=== PATIENT | female | born 1960 | race Caucasian/White ===

== ENCOUNTER 2016-08-18 11:53 | Emergency (ER) | payer BC ==
[2016-08-18] MEDS ORDERED: NS 0.9% 1000 ML* 1,000 ML IV ONE (12:49)
[2016-08-18 13:11] LABS: Urine Bacteria Absent (Absent); Urine Bilirubin Negative (Negative); Urine Glucose Negative (Negative); Urine Nitrite Negative (Negative)
[2016-08-18 13:31] LABS: Add Diff/Slide Review? Slide Review Added; Comments Flag Yes; Hematocrit 34 % (35-47); Hemoglobin 11.2 g/dl (12.0-16.0); Mean Corpuscular HGB Conc 33 g/dl (31-36); Mean Corpuscular Hemoglobin 32 pg (27-31); Mean Corpuscular Volume 94 fL (80-97); Mean Platelet Volume 10 um3 (7.4-10.4); Red Blood Count 3.57 10^6/ul (4.0-5.4); Red Cell Distribution Width 13 % (10.5-15); White Blood Count 3.2 10^3/ul (3.5-10.8)
--- NOTE | 2016-08-18 13:56 | RAD ---
Indication: Decreased sensation of the left face, evaluate for stroke. CT of the brain was performed without IV contrast. Ventricular structures are midline. No midline shift is noted. The extraction spaces are unremarkable. There is no evidence of intracranial mass or hemorrhage. No other high or low density lesions are identified. Mastoid air cells and paranasal sinuses are otherwise unremarkable. IMPRESSION: No intracranial mass or hemorrhage is identified.
[2016-08-18 14:00] LABS: ALT 7 U/L (7-52); AST 16 U/L (13-39); Albumin 4.4 g/dL (3.2-5.2); Alkaline Phosphatase 57 U/L (34-104); Anion Gap 4 mmol/L (2-11); BUN/Creatinine Ratio 14.5 (8-20); Blood Urea Nitrogen 24 mg/dL (6-24); C Reactive Protein < 1.00 mg/L (< 5.00); CO2 Carbon Dioxide 30 mmol/L (22-32); Calcium 10.1 mg/dL (8.6-10.3); Chloride 105 mmol/L (101-111); EGFR African American 41.8 (>60); EGFR Non-African American 32.5 (>60); Globulin 2.7 g/dL (2-4); Glucose 90 mg/dL (70-100); Magnesium 2.2 mg/dL (1.9-2.7); Potassium 4.7 mmol/L (3.5-5.0); Sodium 139 mmol/L (133-145); Total Protein 7.1 g/dL (6.4-8.9)
[2016-08-18 14:27] LABS: TSH (Thyroid Stimulating Horm) 1.36 mcIU/mL (0.34-5.60)
[2016-08-18 14:33] VITALS: BP 107/66
--- NOTE | 2016-08-18 17:04 | ED ---
Jesus Xiao Billy, scribed for Otto Monahan MD on 08/18/16 at 1245 . Dizziness - HPI Summary HPI Summary: Patient is a 55 year-old female coming to [facility] for evaluation of dizziness starting two days ago. Patient describes near-syncopal sensation; denies any headspinning or roomspinning sensation. She has some staggering with ambulation. She also reports left-sided facial numbness associated with her dizziness. She reports constipation for several weeks. Denies any numbness/ weakness in the extremities. Denies any N/V/D, blood in the stools, chest pain, SOB, urinary changes, appetite changes, difficulty swallowing. Denies any known tick bites. Denies any recent change in medication. Denies any history of stroke. She had similar symptoms in 2010 which she attributes to side effects of lithium. - History Of Current Complaint Chief Complaint: EDDizziness Stated Complaint: DIZZY, NUMBNESS ON LEFT SIDE OF FACE Time Seen by Provider: 08/18/16 12:35 Hx Obtained From: Patient Onset/Duration: Still Present, Gradually Timing: Constant Severity Initially: Moderate Severity Currently: Moderate Character: Dizzy Aggravating Factor(s): Nothing Alleviating Factor(s): Nothing Associated Signs And Symptoms: Positive: Unsteady Gait. Negative: Nausea, Vomiting, Diarrhea, Chest Pain, SOB, Change In Medication, Blood In Stool - Allergies/Home Medications Allergies/Adverse Reactions: Allergies Allergy/AdvReac Type Severity Reaction Status Date / Time No Known Allergies Allergy Verified 08/18/16 12:21 Home Medications: Home Medications LORazepam TAB(*) [Ativan 0.5 MG TAB (*)] 0.5 mg PO BEDTIME PRN 08/18/16 [ History Confirmed 08/18/16] QUEtiapine TAB* [SEROquel TAB*] 200 mg PO BEDTIME 08/18/16 [History Confirmed ] lamoTRIgine TAB(*) [LaMICtal TAB(*)] 200 mg PO BID 08/18/16 [History Confirmed 08/18/16] PMH/Surg Hx/FS Hx/Imm Hx Endocrine/Hematology History: Denies: Hx Diabetes Cardiovascular History: Denies: Hx Hypertension, Hx Pacemaker/ICD History: Reports: Hx Renal Disease - DUE TO LITHIUM CARBONATE USE X24 YEARS Sensory History: Denies: Hx Hearing Aid Neurological History: Denies: Hx Seizures Psychiatric History: Reports: Hx Panic Disorder - ANXIETY ATTACKS, Hx Bipolar Disorder - Surgical History Surgery Procedure, Year, and Place: CYST REMOVED FROM LEFT FALLOPIAN TUBE, APPENDIX, BIOPSY RIGHT BREAST Infectious Disease History: No Infectious Disease History: Denies: Traveled Outside the [place] in Last 30 Days - Family History Family History: No FHx of stroke. - Social History Alcohol Use: None Substance Use Type: Reports: None Smoking Status (MU): Never Smoked Tobacco Review of Systems Negative: Chest Pain Negative: Shortness Of Breath Positive: Other - constipation. Negative: Vomiting, Diarrhea, Nausea Negative: dysuria, frequency, urgency Neurological: Other - dizziness Positive: Numbness - left-sided facial. Negative: Weakness All Other Systems Reviewed And Are Negative: Yes Physical Exam - Summary Physical Exam Summary: The patient is well-nourished in no acute distress and in no acute pain. The skin is warm and dry and skin color reflects adequate perfusion. HEENT: The head is normocephalic and atraumatic. The pupils are equal and reactive. No nystagmus. EOMI. The conjunctivae are clear and without drainage. Nares are patent and without drainage. Mouth reveals moist mucous membranes and the throat is without erythema and exudate. The external ears are intact. The ear canals are patent and without drainage. The tympanic membranes are intact. Neck is supple with full range of motion and non-tender. There are no carotid bruits. There is no neck vein distension. Respiratory: Chest is non-tender. Lungs are clear to auscultation and breath sounds are symmetrical and equal. Cardiovascular: Heart is regular rate and rhythm. Positive murmur. There is no peripheral edema and pulses are symmetrical and equal. Abdomen: The abdomen is soft and non-tender. There are normal bowel sounds heard in all four quadrants and there is no organomegaly palpated. Musculoskeletal: There is no back pain noted. No CVA tenderness. Extremities are non-tender with full range of motion. There is good capillary refill. There is no peripheral edema or calf tenderness elicited. Neurological: Patient is alert and oriented to person, place and time. The patient has symmetrical motor strength in all four extremities. Cranial nerves are grossly intact. No facial droop. No pronator drift. [id number] intact. [id number] intact. Decreased sensation on the left side of the face. Deep tendon reflexes are symmetrical and equal in all four extremities. Psychiatric: The patient has an appropriate affect and does not exhibit any anxiety or depression. Triage Information Reviewed: Yes Vital Signs On Initial Exam: Initial Vitals Temp Pulse Resp BP Pulse Ox 99 F 84 20 104/71 100 08/18/16 11:55 08/18/16 11:55 08/18/16 11:55 08/18/16 11:55 08/18/16 11:55 Vital Signs Reviewed: Yes - Larissa Coma Scale Coma Scale Total: 15 Diagnostics - Vital Signs Vital Signs Temp Pulse Resp BP Pulse Ox 08/18/16 12:24 76 94/72 08/18/16 12:15 76 94/72 100 08/18/16 12:14 75 101/70 99 08/18/16 11:55 99 F 84 20 104/71 100 - Laboratory Lab Results: Lab Results 08/18/16 08/18/16 08/18/16 Range/Units 12:18 13:15 13:15 WBC 3.2 L (3.5-10.8) 10^3/ul RBC 3.57 L (4.0-5.4) 10^6/ul Hgb 11.2 L (12.0-16.0) g/dl Hct 34 L (35-47) % MCV 94 (80-97) fL MCH 32 H (27-31) pg MCHC 33 (31-36) g/dl RDW 13 (10.5-15) % Plt Count 174 (150-450) 10^3/ul MPV 10 (7.4-10.4) um3 Neut % (Auto) 66.4 (38-83) % Lymph % (Auto) 24.5 L (25-47) % [place] % (Auto) 7.3 (1-9) % Eos % (Auto) 0.7 (0-6) % Baso % (Auto) 1.1 (0-2) % Absolute Neuts (auto) 2.1 (1.5-7.7) 10^3/ul Absolute Lymphs (auto) 0.8 L (1.0-4.8) 10^3/ul Absolute Monos (auto) 0.2 (0-0.8) 10^3/ul Absolute Eos (auto) 0 (0-0.6) 10^3/ul Absolute Basos (auto) 0 (0-0.2) 10^3/ul Absolute Nucleated RBC 0 10^3/ul Nucleated RBC % 0 Sodium 139 (133-145) mmol/L Potassium 4.7 (3.5-5.0) mmol/L Chloride 105 (101-111) mmol/L Carbon Dioxide 30 (22-32) mmol/L Anion Gap 4 (2-11) mmol/L BUN 24 (6-24) mg/dL Creatinine 1.65 H (0.51-0.95) mg/dL Est GFR ( Amer) 41.8 (>60) Est GFR (Non-Af Amer) 32.5 (>60) BUN/Creatinine Ratio 14.5 (8-20) Glucose 90 (70-100) mg/dL Lactic Acid (0.5-2.0) mmol/L Calcium 10.1 (8.6-10.3) mg/dL Magnesium 2.2 (1.9-2.7) mg/dL Total Bilirubin 0.40 (0.2-1.0) mg/dL AST 16 (13-39) U/L ALT 7 (7-52) U/L Alkaline Phosphatase 57 (34-104) U/L Troponin I 0.00 (<0.04) ng/mL C-Reactive Protein < 1.00 (< 5.00) mg/L Total Protein 7.1 (6.4-8.9) g/dL Albumin 4.4 (3.2-5.2) g/dL Globulin 2.7 (2-4) g/dL Albumin/Globulin Ratio 1.6 (1-3) TSH 1.36 (0.34-5.60) mcIU/mL Urine Color Straw Urine Appearance Clear Urine pH 7.0 (5-9) Ur Specific [place] 1.004 L (1.010-1.030) Urine Protein Negative (Negative) Urine Ketones Negative (Negative) Urine Blood Negative (Negative) Urine Nitrate Negative (Negative) Urine Bilirubin Negative (Negative) Urine Urobilinogen Negative (Negative) Ur Leukocyte Esterase Trace H (Negative) Urine WBC (Auto) Trace(0-5/hpf) (Absent) Urine RBC (Auto) Absent (Absent) Ur Squamous Epith Cells Present H (Absent) Urine Bacteria Absent (Absent) Urine Glucose Negative (Negative) 08/18/16 Range/Units 13:15 WBC (3.5-10.8) 10^3/ul RBC (4.0-5.4) 10^6/ul Hgb (12.0-16.0) g/dl Hct (35-47) % MCV (80-97) fL MCH (27-31) pg MCHC (31-36) g/dl RDW (10.5-15) % Plt Count (150-450) 10^3/ul MPV (7.4-10.4) um3 Neut % (Auto) (38-83) % Lymph % (Auto) (25-47) % [place] % (Auto) (1-9) % Eos % (Auto) (0-6) % Baso % (Auto) (0-2) % Absolute Neuts (auto) (1.5-7.7) 10^3/ul Absolute Lymphs (auto) (1.0-4.8) 10^3/ul Absolute Monos (auto) (0-0.8) 10^3/ul Absolute Eos (auto) (0-0.6) 10^3/ul Absolute Basos (auto) (0-0.2) 10^3/ul Absolute Nucleated RBC 10^3/ul Nucleated RBC % Sodium (133-145) mmol/L Potassium (3.5-5.0) mmol/L Chloride (101-111) mmol/L Carbon Dioxide (22-32) mmol/L Anion Gap (2-11) mmol/L BUN (6-24) mg/dL Creatinine (0.51-0.95) mg/dL Est GFR ( Amer) (>60) Est GFR (Non-Af Amer) (>60) BUN/Creatinine Ratio (8-20) Glucose (70-100) mg/dL Lactic Acid 0.3 L (0.5-2.0) mmol/L Calcium (8.6-10.3) mg/dL Magnesium (1.9-2.7) mg/dL Total Bilirubin (0.2-1.0) mg/dL AST (13-39) U/L ALT (7-52) U/L Alkaline Phosphatase (34-104) U/L Troponin I (<0.04) ng/mL C-Reactive Protein (< 5.00) mg/L Total Protein (6.4-8.9) g/dL Albumin (3.2-5.2) g/dL Globulin (2-4) g/dL Albumin/Globulin Ratio (1-3) TSH (0.34-5.60) mcIU/mL Urine Color Urine Appearance Urine pH (5-9) Ur Specific [place] (1.010-1.030) Urine Protein (Negative) Urine Ketones (Negative) Urine Blood (Negative) Urine Nitrate (Negative) Urine Bilirubin (Negative) Urine Urobilinogen (Negative) Ur Leukocyte Esterase (Negative) Urine WBC (Auto) (Absent) Urine RBC (Auto) (Absent) Ur Squamous Epith Cells (Absent) Urine Bacteria (Absent) Urine Glucose (Negative) Result Diagrams: 08/18/16 13:15 08/18/16 13:15 Lab Statement: Any lab studies that have been ordered have been reviewed, and results considered in the medical decision making process. 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: Both Correctly Best Gaze (Only Horizontal Eye Movement): Normal Visual Field Testing: No Visual Loss Facial Paresis-Pt to Smile & Close Eyes or Grimace Symmetry: Normal/Symmetrical Motor Function - Right Arm: No Drift-Holds 10 Seconds Motor Function - Left Arm: No Drift-Holds 10 Seconds Motor Function - Right Leg: No Drift-Holds 10 Seconds Motor Function - Left Leg: No Drift-Holds 10 Seconds Limb Ataxia-Must be out of Proportion to Weakness Present: Absent Sensory (Use Pinprick to Test Arms/Legs/Trunk/Face): Pinprick Less on Affected Best Language (Describe Picture, Name Items): No Aphasia Dysarthria (Read Several Words): Normal Extinction and Inattention: No Abnormality Total Score: 1 Re-Evaluation - Re-Evaluation First Eval Re-Evaluation Time: 14:26 Change: Improved Comment: Labs and imaging reviewed with the patient. Plan for discharge discussed. Dizzy Course/Dx - Course Assessment/Plan: 55 y/o female coming to [facility] for evaluation of dizziness. CT of the brain shows no acute pathology. EKG shows NSR with no STEMI. She was hydrated with IV fluids in the ED. Plan for dicsharge reviewed and discussed with the patient, who was agreeable with the plan. She will follow up with her PCP Dr. Church. - Diagnoses Differential Diagnosis/HQI/PQRI: Benign Paroxysmal Positional Vertigo, CVA, Hypovolemia, Metabolic Abnormality, Other - anxiety, renal failure, dehydration Provider Diagnoses: Dizziness, Lightheaded Discharge - Discharge Plan Condition: Stable Disposition: HOME Patient Education Materials: Dizziness (ED) Referrals: Jessica Church MD [Primary Care Provider] - The documentation as recorded by the Jesus mahajan Billy accurately reflects the service I personally performed and the decisions made by me, Otto Monahan MD.
== END 2016-08-18 14:36 | disposition home or self-care (01) ==
LOC: ED 11:53
DX: R42 Dizziness and giddiness (principal); K59.00 Constipation, unspecified; R53.1 Weakness
CPT/HCPCS: 36415; 70450; 80053; 81003; 81015; 83605; 83735; 84443; 84484; 85025; 86140; 87086; 93005; 99283

== ENCOUNTER 2017-01-30 18:28 | Emergency (ER) | payer BC ==
[2017-01-30 18:43] VITALS: BP 107/77
--- NOTE | 2017-01-30 18:54 | UC ---
Complaint Female HPI - HPI Summary HPI Summary: Concerned she has a UTI as she has had urinary frequency but no pain - History Of Current Complaint Hx Obtained From: Patient Hx Last Menstrual Period: menopause ?: No Onset/Duration: Gradual Onset, Lasting Days, Still Present Timing: Constant Severity Initially: Mild Severity Currently: Mild Associated Signs And Symptoms: Positive: Negative <Alivia Bowen - Last Filed: 02/01/17 15:48> <Dianne Barnes - Last Filed: 02/02/17 11:47> - History Of Current Complaint Chief Complaint: UCGU Stated Complaint: POSS UTI Time Seen by Provider: 01/30/17 18:53 - Allergies/Home Medications Allergies/Adverse Reactions: Allergies Allergy/AdvReac Type Severity Reaction Status Date / Time No Known Allergies Allergy Verified 08/18/16 12:21 PMH/Surg Hx/FS Hx/Imm Hx Previously Healthy: No GI/ History: Renal Disease Psychological History: Bipolar Disorder - Surgical History Surgical History: Yes Surgery Procedure, Year, and Place: CYST REMOVED FROM LEFT FALLOPIAN TUBE, APPENDIX, BIOPSY RIGHT BREAST - Family History Known Family History: Positive: None Family History: . - Social History Occupation: Employed Full-time Lives: With Family Alcohol Use: None Substance Use Type: None Smoking Status (MU): Never Smoked Tobacco <Alivia Bowen - Last Filed: 02/01/17 15:48> Review of Systems Constitutional: Negative Skin: Negative Eyes: Negative ENT: Negative Respiratory: Negative Cardiovascular: Negative Gastrointestinal: Negative Genitourinary: Frequency Motor: Negative Neurovascular: Negative Musculoskeletal: Negative Neurological: Negative Psychological: Negative All Other Systems Reviewed And Are Negative: Yes <Alivia Bowen - Last Filed: 02/01/17 15:48> Physical Exam Triage Information Reviewed: Yes Appearance: Well-Appearing, No Pain Distress, Well-Nourished Vital Signs: Initial Vital Signs Temp 98.9 F 01/30/17 18:37 Pulse 69 01/30/17 18:37 Resp 16 01/30/17 18:37 BP 107/77 01/30/17 18:37 Pulse Ox 100 01/30/17 18:37 Vital Signs Reviewed: Yes Eye Exam: Normal Eyes: Positive: Conjunctiva Clear ENT Exam: Normal ENT: Positive: Normal ENT inspection, Hearing grossly normal, TMs normal. Negative: Nasal congestion, Nasal drainage, Trismus, Muffled/hoarse voice Dental Exam: Normal Neck exam: Normal Neck: Positive: Supple, Nontender, No Lymphadenopathy Respiratory Exam: Normal Respiratory: Positive: Chest non-tender, Lungs clear, Normal breath sounds, No respiratory distress, No accessory muscle use Cardiovascular Exam: Normal Cardiovascular: Positive: RRR, No Murmur, Pulses Normal, Brisk Capillary Refill Abdominal Exam: Normal Abdomen Description: Positive: Nontender, No Organomegaly, Soft. Negative: CVA Tenderness (R), CVA Tenderness (L) Musculoskeletal Exam: Normal Musculoskeletal: Positive: Strength Intact, ROM Intact, No Edema Neurological Exam: Normal Neurological: Positive: Alert, Muscle Tone Normal Psychological Exam: Normal Psychological: Positive: Normal Response To Family Skin Exam: Normal <Alivia Bowen - Last Filed: 02/01/17 15:48> Vital Signs: Initial Vital Signs Temp 98.9 F 01/30/17 18:37 Pulse 69 01/30/17 18:37 Resp 16 01/30/17 18:37 BP 107/77 01/30/17 18:37 Pulse Ox 100 01/30/17 18:37 <Dianne Barnes - Last Filed: 02/02/17 11:47> Diagnostics - Laboratory Diagnostic Studies Completed/Ordered: UA trace leuks <Alivia Bowen - Last Filed: 02/01/17 15:48> Complaint Female Dx - Course Course Of Treatment: Culture Urine, continue with increase po fluids, follow with Dr. Brunson as planned for routine evaluation of chronic disease - Differential Dx/Diagnosis Differential Diagnosis/HQI/PQRI: Ovarian Cyst, Pelvic Inflammatory Disease, Renal Colic, Ureteral Stone, Urinary Tract Infection Provider Diagnoses: Urinary Frequency <Alivia Bowen - Last Filed: 02/01/17 15:48> Discharge <Alivia Bowen - Last Filed: 02/01/17 15:48> <Dianne Barnes - Last Filed: 02/02/17 11:47> - Discharge Plan Condition: Stable Disposition: HOME Referrals: Des Brunson MD [Medical Doctor] - 02/08/17 (as planned ) Additional Instructions: I am culturing you urine to assure there is not an infection. We will call you if you need to start on any antibiotics and call them in to the pharmacy for you. Follow with Dr. Brunson as planned Attestation Statement User Type: Provider - I was available for consult. This patient was seen by the GERMAN. The patient was not presented to, seen by, or examined by me. -Ashley <Dianne Barnes - Last Filed: 02/02/17 11:47>
== END 2017-01-30 19:25 | disposition home or self-care (01) ==
LOC: UCEAST 18:28
DX: R35.0 Frequency of micturition (principal); F31.9 Bipolar disorder, unspecified; Z78.0 Asymptomatic menopausal state; N28.9 Disorder of kidney and ureter, unspecified; Z32.02 Encounter for pregnancy test, result negative
CPT/HCPCS: 81003; 84702; 87086; 99211; G0463

== ENCOUNTER 2017-04-21 17:08 | Emergency (ER) | payer BC ==
[2017-04-21 17:39] VITALS: BP 115/74
--- NOTE | 2017-04-21 18:01 | UC ---
Skin Complaint HPI - HPI Summary HPI Summary: ITCHY RED SPOT RIGHT LOWER BACK FOR PAST 2 MONTHS. NOT GETTING BIGGER BUT NOT GOING AWAY. USING TEA TREE OIL - NOT HELPING. DENIES H/O ECZEMA OR ALLERGIES. - History of Current Complaint Chief Complaint: UCSkin Time Seen by Provider: 04/21/17 17:50 Stated Complaint: SPOT ON BACK Hx Obtained From: Patient Hx Last Menstrual Period: menopause Onset/Duration: Gradual Onset, Lasting Weeks, Still Present Timing: Constant Pain Intensity: 0 Pain Scale Used: 0-10 Numeric Location: Discrete - RIGHT LOW BACK Character: Pruritus, Redness, Raised Aggravating Factor(s): Touch Alleviating Factor(s): Nothing Associated Signs & Symptoms: Positive: Negative - Allergy/Home Medications Allergies/Adverse Reactions: Allergies Allergy/AdvReac Type Severity Reaction Status Date / Time No Known Allergies Allergy Verified 04/21/17 17:39 Review of Systems Constitutional: Negative Skin: Rash Respiratory: Negative Cardiovascular: Negative Gastrointestinal: Negative All Other Systems Reviewed And Are Negative: Yes PMH/Surg Hx/FS Hx/Imm Hx Psychological History: Bipolar Disorder - Surgical History Surgical History: Yes Surgery Procedure, Year, and Place: CYST REMOVED FROM LEFT FALLOPIAN TUBE, APPENDIX, BIOPSY RIGHT BREAST - Family History Family History: NO FAM H/O SKIN CANCER. - Social History Alcohol Use: None Substance Use Type: None Smoking Status (MU): Never Smoked Tobacco Physical Exam Triage Information Reviewed: Yes Appearance: Well-Appearing, No Pain Distress, Well-Nourished Vital Signs: Initial Vital Signs Temp 98.2 F 04/21/17 17:34 Pulse 87 04/21/17 17:34 Resp 17 04/21/17 17:34 BP 115/74 04/21/17 17:34 Pulse Ox 100 04/21/17 17:34 Vital Signs Reviewed: Yes Eyes: Positive: Conjunctiva Clear ENT: Positive: Hearing grossly normal Neck: Positive: Supple Respiratory: Positive: No respiratory distress, No accessory muscle use Cardiovascular: Positive: Pulses Normal Abdomen Description: Positive: Soft Musculoskeletal: Positive: No Edema Neurological: Positive: Alert Psychological: Positive: Age Appropriate Behavior Skin: Positive: Other - 1.5CM X 0.5CM RAISED, RED SPOT WITH SOME FLAKING RIGHT LOW BACK Course/Dx - Diagnoses Provider Diagnoses: DERMATITIS, NOS Discharge - Discharge Plan Condition: Stable Disposition: HOME Prescriptions: Clobetasol Propionate 0.05 % TOPICAL BID PRN #1 tube PRN Reason: Itching Patient Education Materials: Eczema (ED), Dermatitis (ED) Referrals: Jessica Church MD [Primary Care Provider] - If Needed Additional Instructions: USE STEROID CREAM TOPICALLY TWICE DAILY. TRY NOT TO SCRATCH. FOLLOW-UP WITH DERM IF NOT RESPONDING. DERMATOLOGY IN [place] Dr. Maria Guadalupe Elizalde Address: [address] [place] [address] [address] [place] [address] [address] TRINI RICHTER [facility] [address] [place] [address] DR. LEI BALDWIN [facility], [facility] [address] [place] [address]; [address] [place] [address] D[address] [place] Dr[address] Kanwal Lara DERMATOLOGY IN [place] DR. GONSALO DOW [phone]
== END 2017-04-21 18:28 | disposition home or self-care (01) ==
LOC: UCEAST 17:08
DX: L30.9 Dermatitis, unspecified (principal)
CPT/HCPCS: 99212; G0463